=== PATIENT | male | born 1955 | race Caucasian/White ===

== ENCOUNTER → 2019-06-17 09:41 | Outpatient (CLI) | payer MEDICARE, OTHER, SELFPAY ==
[2019-06-17 10:10] LABS: Add Manual Diff / Slide Review NO; Basophils Absolute Auto 100 /uL (0-100); Basophils Percent Auto 0.7 % (0-2); Eosinophils Absolute Auto 300 /uL (0-450); Eosinophils Percent Auto 2.7 % (2-4); Hematocrit 41.3 % (41-53); Hemoglobin 13.8 g/dL (13.5-17.5); Lymphocytes Absolute Auto 2200 /uL (1100-4500); Lymphocytes Percent Auto 22.6 % (25-40); Mean Corpuscular HGB Conc 33.6 % (30-36); Mean Corpuscular Hemoglobin 26.6 PG (26-34); Mean Corpuscular Volume 79.4 fL (80-100); Monocytes Absolute Auto 600 /uL (0-900); Monocytes Percent Auto 6.4 % (3-14); Neutrophils Absolute Auto 6600 /uL (1500-7000); Neutrophils Percent Auto 67.6 % (50-75); Platelet Count 275 X10^3/uL (150-400); Red Blood Cell Count 5.19 X10^6/uL (4.5-5.9); Red Cell Distribution Width 13.8 % (11.6-14.8); White Blood Cell Count 9.8 X10^3/uL (4.5-11.0)
[2019-06-17 10:20] LABS: Hemoglobin A1C% w Est Avg Glu 8.8 % (4.0-6.0)
[2019-06-17 10:50] LABS: Alanine Aminotransferase 29 IU/L (21-72); Albumin 3.7 g/dL (3.5-5.0); Albumin Globulin Ratio 1.2 (1.0-2.8); Alkaline Phosphatase 62 U/L (38-126); Aspartate Aminotransferase 19 IU/L (17-59); Bilirubin Total 0.2 mg/dL (0.2-1.3); Blood Urea Nitrogen 19 mg/dL (9-20); Calcium 9.5 mg/dL (8.4-10.2); Carbon Dioxide 29 mmol/L (22-32); Chloride 98 mmol/L (98-107); Estimated Glomerular Filt Rate > 60.0 mL/min (>60); Glucose 237 mg/dL (80-110); HEMOLYSIS < 15 (0-50); Sodium 134 mmol/L (137-145); Total Protein 6.7 g/dL (6.3-8.2)
== END ==
PROVIDERS: Visit Provider Physician Assistant
DX: E11.9 Type 2 diabetes mellitus without complications (principal); I10 Essential (primary) hypertension
CPT/HCPCS: 36415; 80053; 83036; 85025

== ENCOUNTER → 2019-07-04 09:54 | Outpatient (CLI) | payer MEDICARE, OTHER, SELFPAY ==
--- NOTE | 2019-07-04 11:52 | DIET.PN ---
DIABETES Nutrition Initial Assessment ASSESS:?? Long standing hx of DM (2004). Was able to get in control by cutting out gluten and wheat, but has gone back up recently. He has the [employer] Marian[facility] Flash glucose monitoring system for consistent monitoring and checks 8-12x/day. Reports FBG readings are where he notices most regular hypoglycemia. He has not been able to work since mid-May due to injury. Admits he has been eating more than usual including large amounts of starch (corn). He has tried several medications including metformin, Januvia, and insulin. He is very concerned with the inconsistency of his readings. He has had several episodes of hypoglycemia to which he controls by adjusting his Glimepiride. ? LABS: A1c: 8.8 (06/30) 10.4 (12/31) 7.7 (02/27) eA FB- 250 7d eAG : 197 ? MEDS:?? Trulicity 1.5 q week (has not had for 2 mo) ; Glimepiride 4mg PRN ? Weight: 206# Height: 70.5? BMI: 29 ? Exercise:? 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 Altered Nutrition related labs related to impaired glucose metabolism, lack of previous exposure to accurate nutrition information as evidenced by pt report, dx of diabetes, previous diet high in refined carbohydrates.? INTERVENTION(s): 1. Discussed pathophysiology of diabetes. Reviewed A1c and its correlation to blood glucose numbers. Discussed recommended BG ranges. 2. Discussed importance of self-monitoring, how often, and when to check. Provided demonstration on use of glucometer. 3. Reviewed hyper/hypoglycemia and treatment. 4. Reviewed DM medications and functions. 5. Discussed impact of nutrition/diet on blood sugar control.? Discussed fed versus non-fed state.?? 6. Discussed the effect of carbohydrates/protein/fat on blood sugar control.? Stressed importance of consistent carbohydrate intake at each meal and provided instructions for recommended servings/portions of carbohydrates/protein per meal. Provided pt with educational material. 7. Reviewed carbohydrate counting and measuring carbohydrate content via serving sizes and reading nutrition labels.? Provided handouts.?? 8. Discussed the difference between simple versus complex carbohydrates and the effect of fiber on blood sugar control.? Discussed various methods to increase fiber content in diet. 9. Stressed importance of meal timing and not going >4-5 hours between meals. Encouraged adding protein to each meal to support glucose control. Provided list of protein foods. Discussed best protein options for heart health and to alleviate hunger. Patient agreeable. 10. Discussed healthy weight loss through diet and exercise to increase lean muscle mass.? Pt agreeable to walking daily. MONITOR/EVALUATE: Anticipate good compliance.? Nutrition follow up schedule for 1 week to review BG, weight, food record.
== END ==
PROVIDERS: Visit Provider Hospitalist
DX: E11.9 Type 2 diabetes mellitus without complications (principal)
CPT/HCPCS: 97802

== ENCOUNTER → 2019-07-09 09:57 | Outpatient (CLI) | payer MEDICARE, OTHER, SELFPAY ==
--- NOTE | 2019-07-09 11:50 | DIET.PN ---
INDIVIDUAL NUTRITION ASSESSMENT? ? ASSESS:? Pt?seen for diabetes nutrition F/U. Since last visit 1 week ago pt has cut down on starches and fruit during the day. He is back on his trulicity which in helping with controlling his portions. He states he discussed changes in eating habits with his and she is supportive. In reviewing his monitor, he continues to have episodes of hypoglycemia in the middle of the night. He reports taking his glimepiride in the morning and Janumet in the evening. ? LABS: A1c: 8.8 7d eA mg/dL (down from 197)? Weight: 206 (no change) ? DIET: Reduced portions of starches and fruits. Increased vegetable intake. ? EXERCISE:??Not at this time due to knee injury ? NUTRITION Dx? 1. Altered nutrition related labs r/t type 2 DM, inconsistent carbohydrate intake as evidenced by pt report, dietary recall.?? ? INTERVENTION? 1. Reviewed blood sugar log and implications/reasons for elevated/decreased blood sugar.? Pt with good understanding.? 2. Reviewed carbohydrate counting and importance of consistent carbohydrate intake.? 3. Reviewed meal intake and importance of balanced meals (ruthie to prevent overeating).??? 4. Provided information on fat/protein intake with meals to help with glucose control. 5. Recommended adding 15-20 g of CHO with evening snack to promote glucose control throughout the night and prevent hypoglycemia. 6. Discussed importance of activity in weight management and increasing insulin sensitivity. ? MONITOR/EVALUATE: Pt receptive to information provided.? Follow up scheduled in 1 week to review glucose log, patterns, and food log.
== END ==
PROVIDERS: Visit Provider Hospitalist
DX: E11.9 Type 2 diabetes mellitus without complications (principal); Z79.84 Long term (current) use of oral hypoglycemic drugs
CPT/HCPCS: 97803

== ENCOUNTER → 2019-07-16 09:55 | Outpatient (CLI) | payer MEDICARE, OTHER, SELFPAY ==
--- NOTE | 2019-07-16 10:37 | DIET.PN ---
Dietary Progress Note Assessment: Met for patients 2 nutrition F/U. Majority of time today spent discussing patients stress in dealing with his 's health. She has been declining for some time, especially in the last week. She was brought into the ED with a UTI. He continues to try and care for himself, but finds it more challenging while managing her care. He is on short 3 of 4 with Trulicity. His average reading continue to drop and he has been able to manage his eating patterns better. Labs: A1c: 8.8 24hr eA 7d eA Nutrition Diagnosis: Altered nutrition related labs r/t type 2 DM, inconsisten carb intake as evidenced by pt report, dietary recall. Interventions: 1. Discussed importance of self-care and continued management of Diabetes so that he can continue to care for his . 2. Discussed possibility of returning home vs staying in [place] longer. Discussed what continued care will look like moving forward. 3. Provided resources for continued care of his to relieve stress so that he can continue to manage his health. Monitoring/Evaluations: No follow up scheduled at this time. He will follow up via phone next week to determine next steps.
== END ==
PROVIDERS: PCP Hospitalist; Visit Provider Hospitalist
DX: E11.9 Type 2 diabetes mellitus without complications (principal)
CPT/HCPCS: 97803

== ENCOUNTER → 2019-10-11 11:03 | Outpatient (CLI) | payer MEDICARE, OTHER, SELFPAY ==
[2019-10-11 11:29] LABS: Add Manual Diff / Slide Review NO; Basophils Absolute Auto 100 /uL (0-100); Basophils Percent Auto 0.9 % (0-2); Eosinophils Absolute Auto 200 /uL (0-450); Eosinophils Percent Auto 2.5 % (2-4); Hematocrit 41.6 % (41-53); Hemoglobin 13.8 g/dL (13.5-17.5); Lymphocytes Absolute Auto 1800 /uL (1100-4500); Lymphocytes Percent Auto 21.8 % (25-40); Mean Corpuscular HGB Conc 33.2 % (30-36); Mean Corpuscular Hemoglobin 26.7 PG (26-34); Mean Corpuscular Volume 80.5 fL (80-100); Monocytes Absolute Auto 600 /uL (0-900); Monocytes Percent Auto 7.1 % (3-14); Neutrophils Absolute Auto 5500 /uL (1500-7000); Neutrophils Percent Auto 67.7 % (50-75); Platelet Count 294 X10^3/uL (150-400); Red Blood Cell Count 5.17 X10^6/uL (4.5-5.9); Red Cell Distribution Width 14.5 % (11.6-14.8); White Blood Cell Count 8.2 X10^3/uL (4.5-11.0)
[2019-10-11 11:42] LABS: Alanine Aminotransferase 29 IU/L (<50); Albumin 4.2 g/dL (3.5-5.0); Albumin Globulin Ratio 1.3 (1.0-2.8); Alkaline Phosphatase 55 U/L (38-126); Aspartate Aminotransferase 30 IU/L (17-59); BUN Creatinine Ratio 15.5 (6-22); Bilirubin Total 0.5 mg/dL (0.2-1.3); Blood Urea Nitrogen 17 mg/dL (9-20); Calcium 9.1 mg/dL (8.4-10.2); Carbon Dioxide 28 mmol/L (22-32); Chloride 101 mmol/L (98-107); Estimated Glomerular Filt Rate > 60.0 mL/min (>60); Globulin 3.2 g/dL (1.7-4.1); Glucose 176 mg/dL (80-110); HEMOLYSIS < 15 (0-50); Potassium 4.3 mmol/L (3.4-5.1); Sodium 137 mmol/L (137-145); Total Protein 7.4 g/dL (6.3-8.2)
[2019-10-11 11:45] LABS: Hemoglobin A1C% w Est Avg Glu 7.1 % (4.0-6.0)
== END ==
PROVIDERS: Visit Provider Family Medicine
DX: E11.9 Type 2 diabetes mellitus without complications (principal); I10 Essential (primary) hypertension; Z12.5 Encounter for screening for malignant neoplasm of prostate
CPT/HCPCS: 36415; 80053; 83036; 85025

== ENCOUNTER → 2019-10-18 10:50 | Outpatient (CLI) | payer MEDICARE, OTHER, SELFPAY ==
[2019-10-18 11:21] LABS: Cholesterol 163 mg/dL (140-199); HDL Cholesterol 38 mg/dL (40-60); LDL Cholesterol Calculated 91 mg/dL (<100); Triglycerides 171 mg/dL (35-150)
[2019-10-18 11:51] LABS: Prostate Specific Antigen Scrn 1.16 ng/mL (0.1-4.0)
== END ==
PROVIDERS: PCP Family Medicine; Visit Provider Family Medicine
DX: Z12.5 Encounter for screening for malignant neoplasm of prostate (principal); E11.9 Type 2 diabetes mellitus without complications; I10 Essential (primary) hypertension; R39.9 Unspecified symptoms and signs involving the genitourinary system
CPT/HCPCS: 80061; G0103

== ENCOUNTER → 2020-09-01 07:32 | Outpatient (CLI) | payer MEDICARE, OTHER, SELFPAY ==
[2020-09-01 08:23] LABS: Add Manual Diff / Slide Review NO; Basophils Absolute Auto 0 /uL (0-100); Basophils Percent Auto 0.5 % (0-2); Eosinophils Absolute Auto 100 /uL (0-450); Eosinophils Percent Auto 1.4 % (2-4); Hematocrit 36.9 % (41-53); Hemoglobin 12.3 g/dL (13.5-17.5); Lymphocytes Absolute Auto 1800 /uL (1100-4500); Lymphocytes Percent Auto 23.3 % (25-40); Mean Corpuscular HGB Conc 33.3 % (30-36); Mean Corpuscular Hemoglobin 27.6 PG (26-34); Mean Corpuscular Volume 82.9 fL (80-100); Monocytes Absolute Auto 600 /uL (0-900); Monocytes Percent Auto 7.4 % (3-14); Neutrophils Absolute Auto 5300 /uL (1500-7000); Neutrophils Percent Auto 67.4 % (50-75); Platelet Count 282 X10^3/uL (150-400); Red Blood Cell Count 4.46 X10^6/uL (4.5-5.9); Red Cell Distribution Width 13.6 % (11.6-14.8); White Blood Cell Count 7.9 X10^3/uL (4.5-11.0)
[2020-09-01 08:53] LABS: Alanine Aminotransferase 35 IU/L (<50); Albumin 4.1 g/dL (3.5-5.0); Albumin Globulin Ratio 1.5 (1.0-2.8); Alkaline Phosphatase 51 U/L (38-126); Aspartate Aminotransferase 35 IU/L (17-59); BUN Creatinine Ratio 23.3 (6-22); Bilirubin Total 0.3 mg/dL (0.2-1.3); Blood Urea Nitrogen 28 mg/dL (9-20); Calcium 9.7 mg/dL (8.4-10.2); Carbon Dioxide 31 mmol/L (22-32); Chloride 100 mmol/L (98-107); Estimated Glomerular Filt Rate > 60.0 mL/min (>60); Globulin 2.8 g/dL (1.7-4.1); Glucose 142 mg/dL (80-110); HEMOLYSIS < 15 (0-50); Potassium 4.2 mmol/L (3.4-5.1); Sodium 136 mmol/L (137-145); Total Protein 6.9 g/dL (6.3-8.2)
[2020-09-01 09:17] LABS: Prostate Specific Antigen Scrn 0.926 ng/mL (0.1-4.0)
== END ==
PROVIDERS: PCP Family Medicine; Referring Provider Family Medicine; Visit Provider Family Medicine
DX: E11.9 Type 2 diabetes mellitus without complications (principal); E78.1 Pure hyperglyceridemia; I10 Essential (primary) hypertension; Z87.898 Personal history of other specified conditions; Z12.5 Encounter for screening for malignant neoplasm of prostate
CPT/HCPCS: 36415; 80053; 83036; 85025; G0103

== ENCOUNTER → 2021-07-23 12:22 | Outpatient (CLI) | payer MEDICARE, OTHER, SELFPAY ==
[2021-07-23 13:17] LABS: Alanine Aminotransferase 31 IU/L (<50); Albumin 4.1 g/dL (3.5-5.0); Albumin Globulin Ratio 1.5 (1.0-2.8); Alkaline Phosphatase 53 U/L (38-126); Aspartate Aminotransferase 27 IU/L (17-59); BUN Creatinine Ratio 21.6 (6-22); Bilirubin Total 0.2 mg/dL (0.2-1.3); Blood Urea Nitrogen 24 mg/dL (9-20); Calcium 9.3 mg/dL (8.4-10.2); Carbon Dioxide 26 mmol/L (22-32); Chloride 101 mmol/L (98-107); Cholesterol 148 mg/dL (140-199); Estimated Glomerular Filt Rate > 60.0 mL/min (>60); Globulin 2.8 g/dL (1.7-4.1); Glucose 152 mg/dL (80-110); HDL Cholesterol 51 mg/dL (40-60); HEMOLYSIS < 15 (0-50); LDL Cholesterol Calculated 81 mg/dL (<100); Potassium 4.6 mmol/L (3.4-5.1); Sodium 135 mmol/L (137-145); Total Protein 6.9 g/dL (6.3-8.2); Triglycerides 78 mg/dL (35-150)
[2021-07-23 13:21] LABS: Hemoglobin A1C% w Est Avg Glu 6.6 % (4.0-6.0)
== END ==
PROVIDERS: PCP Family Medicine; Referring Provider Family Medicine; Visit Provider Family Medicine
DX: E78.1 Pure hyperglyceridemia (principal); E11.9 Type 2 diabetes mellitus without complications
CPT/HCPCS: 36415; 80053; 80061; 83036

== ENCOUNTER → 2023-08-30 10:41 | Outpatient (CLI) | payer MEDICARE, OTHER, SELFPAY ==
[2023-08-30 12:28] LABS: Alanine Aminotransferase 30 IU/L (<50); Albumin 4.2 g/dL (3.5-5.0); Albumin Globulin Ratio 1.5 (1.0-2.8); Alkaline Phosphatase 64 U/L (38-126); Aspartate Aminotransferase 27 IU/L (17-59); BUN Creatinine Ratio 19.7 (6-22); Bilirubin Total 0.2 mg/dL (0.2-1.3); Blood Urea Nitrogen 27 mg/dL (9-20); Calcium 9.7 mg/dL (8.4-10.2); Carbon Dioxide 27 mmol/L (22-32); Chloride 96 mmol/L (98-107); Cholesterol 182 mg/dL (140-199); Estimated Glomerular Filt Rate 55 mL/min (>60); Globulin 2.8 g/dL (1.7-4.1); Glucose 136 mg/dL (80-110); HDL Cholesterol 50 mg/dL (40-60); HEMOLYSIS < 15 (0-50); LDL Cholesterol Calculated 100 mg/dL (<100); Potassium 4.8 mmol/L (3.4-5.1); Sodium 133 mmol/L (137-145); Triglycerides 162 mg/dL (35-150)
[2023-08-30 12:51] LABS: Prostate Specific Antigen Scrn 1.15 ng/mL (0.1-4.0)
[2023-08-30 13:20] LABS: Creatinine Urine Random 121.7 mg/dL
[2023-08-30 13:22] LABS: Microalbumi Creatinin Ratio Ur 79.7 ug/mg CR (<30); Microalbumin Urine Random 9.7 mg/dL (0-1.6)
[2023-08-31 18:56] LABS: Fecal Immunochemical Test Negative (Negative)
== END ==
PROVIDERS: PCP Family Medicine; Referring Provider Family Medicine; Visit Provider Family Medicine
DX: E11.42 Type 2 diabetes mellitus with diabetic polyneuropathy (principal); I10 Essential (primary) hypertension; Z12.5 Encounter for screening for malignant neoplasm of prostate; Z87.898 Personal history of other specified conditions; E78.1 Pure hyperglyceridemia; Z12.11 Encounter for screening for malignant neoplasm of colon
CPT/HCPCS: 36415; 80053; 80061; 82043; 82274; 82570; 83036; G0103